=== PATIENT | male | born 1980 | race Caucasian/White ===

== ENCOUNTER 2025-08-20 08:26 | Day surgery (SDC) | payer OTHER, SELFPAY ==
[2025-08-01 15:13] VITALS: BMI 22.4
[2025-08-08 13:35] VITALS: BMI 22.4
[2025-08-20 08:49] VITALS: BP 127/86; PULSE 51; RESP 16; TEMP 36.9; O2SAT 100
[2025-08-20] MEDS: LACTATED RINGERS 1,000 ML 150 ML IV CONT (08:55)
--- NOTE | 2025-08-20 09:14 | PM.IMHP ---
H&P: HPI History of Present Illness Date/Time: 08/20/25 09:14 Chief Complaint: screening colonoscopy Narrative: This is the patient's first colonoscopy. There are no GI symptoms and there is no family history of colorectal cancer. Review of Systems Review of Systems: All systems reviewed & are unremarkable except as noted in HPI and below PMFSH Past Medical History Medical History Right knee injury Right knee pain Establishing care with new doctor, encounter for Annual physical exam Allergies Surgical History Surgical History H/O vasectomy Family History Family History Mother Diabetes mellitus Grandparent Cerebrovascular accident Heart disease Social History Social History (Updated 07/09/25 @ 11:29 by Yinka Lopez) Social History: 07/09/25 patient declined SDOH Smoking packs per day: 0.25 Smoking cigarettes per day: 5.0 Years smoked: 5 Smoking pack-years: 1.25 Smoking status: Former smoker Tobacco type: cigarettes Smoking end date: 11/01/97 Alcohol intake: current Drinks per week: 3 Alcohol use details: social Substance use: never Substance use type: does not use Do You Feel Safe in your Home?: Yes Lack of Transportation: No Lack of Food: Never True Current Housing: I Have Housing Concerned About Future Housing: No Difficulty Paying Gas/Electric Bills: No Difficulty Paying for Meds: No Currently Unemployed: No Education: Associate Degree Difficulty w/ Childcare or Family Care: No Living arrangements: with family Occupation/Education: occupation 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 Gender identity (if verbalized by the patient): Male Spiritual care concerns: No Meds Home Medications and Allergies Home Medications ?Medication ?Instructions ?Recorded ?Confirmed ?Type cetirizine 10 mg tablet (Zyrtec) 10 mg PO DAILY PRN allergy symptoms 06/11/22 08/20/25 History montelukast 10 mg tablet 10 mg PO DAILY #90 tabs 07/09/25 08/20/25 Rx (Singulair) Allergies Allergy/AdvReac Type Severity Reaction Status Date / Time No Known Allergies Allergy Verified 08/20/25 08:48 Vital Signs Vital Signs - 24 hr 08/20/25 08:49 Temperature 98.5 F Pulse Rate 51 L Respiratory Rate 16 Blood Pressure 127/86 Pulse Oximetry 100 Oxygen Delivery Room Air Exam Const: General: cooperative and healthy appearing Resp: Effort & Inspection: normal respiratory effort and able to speak in complete sentences Auscultation: clear to auscultation bilaterally Cardio: Rate: regular rate Rhythm: regular rhythm GI: Inspection: normal to inspection GI Palp: No No hepatosplenomegaly present Auscultation: normal bowel sounds Rectal Exam: deferred Skin: General skin exam: normal color Psych: Appearance: grossly normal Mental Status: mental status grossly normal Assessment and Plan Assessment and plan (1) Encounter for screening colonoscopy: Code(s): Z12.11 - Encounter for screening for malignant neoplasm of colon Status: Acute Assessment and Plan: The patient is deemed a good candidate for the procedure. Consent signed. Will proceed.
--- NOTE | 2025-08-20 09:15 | P.PNAN_ITS ---
Anes - Initial Pre Proc Eval Procedure: Operation Date: 08/20/25 10:00 Proposed Procedures p Screening Colonoscopy - Brady Fairbanks MD Date/Time: 08/20/25 09:15 Surgeon: Brady Fairbanks MD Pre Op Diagnosis: Encounter for screening for malignant neoplasm of Patient Data Age: 45 Gender: M Height: 1.75 m Weight: 67 kg Last Vital Signs Temp 36.9 C 08/20/25 08:49 Pulse 51 L 08/20/25 08:49 Resp 16 08/20/25 08:49 BP 127/86 08/20/25 08:49 Pulse Ox 100 08/20/25 08:49 O2 Del Method Room Air 08/20/25 08:49 Allergies Allergy/AdvReac Type Severity Reaction Status Date / Time No Known Allergies Allergy Verified 08/20/25 08:48 Home Medications ?Medication ?Instructions ?Recorded ?Confirmed ?Type cetirizine 10 mg tablet (Zyrtec) 10 mg PO DAILY PRN al lergy symptoms 06/11/22 08/20/25 History montelukast 10 mg tablet 10 mg PO DAILY #90 tabs 06/2508/20/25 Rx (Singulair) Patient hx anesthesia problems: none Family hx anesthesia problems: none Results Review: All pre-operative results and documents have been reviewed as part of the pre- operative evaluation. [facility] Past Medical History Medical History Right knee injury Right knee pain Establishing care with new doctor, encounter for Annual physical exam Allergies Surgical History Surgical History H/O vasectomy Family History Family History Mother Diabetes mellitus Grandparent Cerebrovascular accident Heart disease Social History Social History (Updated 07/09/25 @ 11:29 by Yinka Lopez) Social History: 07/09/25 patient declined SDOH Smoking packs per day: 0.25 Smoking cigarettes per day: 5.0 Years smoked: 5 Smoking pack-years: 1.25 Smoking status: Former smoker Tobacco type: cigarettes Smoking end date: 11/01/97 Alcohol intake: current Drinks per week: 3 Alcohol use details: social Substance use: never Substance use type: does not use Do You Feel Safe in your Home?: Yes Lack of Transportation: No Lack of Food: Never True Current Housing: I Have Housing Concerned About Future Housing: No Difficulty Paying Gas/Electric Bills: No Difficulty Paying for Meds: No Currently Unemployed: No Education: Associate Degree Difficulty w/ Childcare or Family Care: No Living arrangements: with family Occupation/Education: occupation 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 Informed Consent: The patient's anesthetic plan and its attendant risks and benefits were discussed with the patient/family/POA. Questions were solicited and answers provided to the satisfaction of the patient/family/POA.
[2025-08-20] MEDS: SIMETHICONE ORAL SUSPENSION 20 MG/0.3 ML 30 ML BOTTLE 0.6 ML IRRIGATION (09:30)
[2025-08-20 09:40] VITALS: BP 125/83; PULSE 64; RESP 20; O2SAT 99
--- NOTE | 2025-08-20 09:43 | WPDANESPN ---
Anes - Prog Note Post-Op Date/Time: 08/20/25 09:43 Cardiovascular status: normal Respiratory status: normal Airway patency: baseline Mental status: baseline Post-Op hydration status: normal Vital Signs: Last Vital Signs Temp 36.9 C 08/20/25 08:49 Pulse 51 L 08/20/25 08:49 Resp 16 08/20/25 08:49 BP 127/86 08/20/25 08:49 Pulse Ox 100 08/20/25 08:49 O2 Del Method Room Air 08/20/25 08:49 Pain Score (VAS): 0 I/O: Intake & Output 08/19/25 08/20/25 08/20/25 23:59 07:59 15:59 Intake Total 0 Balance 0 Patient Feedback: Patient satisfied with anesthetic care.
[2025-08-20 09:50] VITALS: BP 131/72; PULSE 47; RESP 18; O2SAT 100
[2025-08-20 10:00] VITALS: BP 116/76; PULSE 53; RESP 20; O2SAT 100
== END 2025-08-20 10:10 | disposition home or self-care (01) ==
PROVIDERS: PCP Nurse Practitioner Adult Health; Referring Provider Nurse Practitioner Adult Health; Visit Provider Internal Medicine Gastroenterology
PROC: 0DJD8ZZ Inspection of Lower Intestinal Tract, Via Natural or Artificial Opening Endoscopic (ICD-10-PCS; CPT 45378; principal; 2025-08-20 10:00)
DX: Z12.11 Encounter for screening for malignant neoplasm of colon (principal); K64.8 Other hemorrhoids
CPT/HCPCS: 45378